=== PATIENT | male | born 1955 | race Caucasian/White ===

== ENCOUNTER 2021-04-11 00:37 | Inpatient (IN) | payer OTHER ==
[~2021-04-11] VITALS: Ht 172.7 cm; Wt 113.4 kg
[2021-04-11] MEDS ORDERED: WELLBUTRIN 100100 MG PO (03:17)
[2021-04-11] MEDS ORDERED: LIPITOR 40 MG T40 M1 PO (03:18)
[2021-04-11] MEDS ORDERED: METFORMIN HCL500 MG PO (03:19)
[2021-04-11] MEDS ORDERED: OMEPRAZOLE 20 M20 M1 PO (03:19)
[2021-04-11] MEDS ORDERED: LISINOPRIL5 MG PO (03:20)
[2021-04-11] MEDS ORDERED: IRON325 PO (03:21)
[2021-04-11] MEDS ORDERED: PAROXETINE HCL30 MG PO (03:24)
[2021-04-11 04:02] LABS: CALCIUM 8.7 mg/dL (8.5-10.1); CREATININE 1.2 mg/dL (0.7-1.3); POTASSIUM 3.9 mmol/L (3.5-5.1)
--- NOTE | 2021-04-11 04:07 | NUR ---
PT IS A DIRECT ADMIT FROM [facility]. ARRIVED AT 0200 ON AN INSULIN DRIP UPON ARRIVAL. BSG CHECKED 150. 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 INSULIN DRIP DC'D. ADDMISSION DONE AND PT ORIENTED TO THE UNIT. BSG RECHECKED IN AN HOUR 60. PO ORANGE JUICE GIVEN AND WILL RECHECK AGAIN. PT C/O CRAMPING IN HANDS AND LEFT LEG STATED STARTED THIS MORNING AND IS INTERMITENT. SR WITH BBB ON THE MONITOR. CALL LIGHT AT REACH AND WILL CONT TO MONITOR.
[2021-04-11 04:49] VITALS: BP 128/63
[2021-04-11 07:14] LABS: ALBUMIN 3.4 g/dL (3.4-5.0); CALCIUM 8.5 mg/dL (8.5-10.1); CREATININE 1.2 mg/dL (0.7-1.3); PHOSPHORUS 3.7 mg/dL (2.5-4.9)
[2021-04-11 07:23] LABS: POTASSIUM 4.1 mmol/L (3.5-5.1)
[2021-04-11 08:15] VITALS: BP 124/52
[2021-04-11 11:50] VITALS: BP 130/78
[2021-04-11 16:03] VITALS: BP 111/72
--- NOTE | 2021-04-11 18:33 | NUR ---
OVERALL PT HAD A GOOD SHIFT, BLOOD SUGARS CONTROLLED WITH INSULIN. PT UP TO VOID SEVERAL TIMES THROUGHOUT THE SHIFT. PT ALSO TOOK A SHOWER.
[2021-04-11 20:18] VITALS: BP 125/76
--- NOTE | 2021-04-12 04:12 | NUR ---
PT IS A/O X4 AND IS UP AD ELIZABETH IN ROOM. PLEASANT AND COOPERATIVE. ROOM AIR. VSS. AFEBRILE. HS BLOOD SUGAR WNL. NO INSULIN GIVEN. DENIES C/O PAIN OR DISCOMFORT. CALLS OUT APPROPRIATELY FOR ASSISTANCE. PT IS PROGRESSING TOWARDS PLAN OF CARE DC GOALS.
[2021-04-12 04:35] LABS: MCH 29.7 pg (26.0-34.0); MCHC 33.4 g/dL (28.0-37.0); RBC 4.72 mil/uL (4.50-6.00); RDW 14.9 % (10.5-14.5)
[2021-04-12 04:45] VITALS: BP 124/79
[2021-04-12 05:02] LABS: ALBUMIN 2.8 g/dL (3.4-5.0); CALCIUM 8.2 mg/dL (8.5-10.1); PHOSPHORUS 3.7 mg/dL (2.5-4.9); POTASSIUM 3.9 mmol/L (3.5-5.1)
[2021-04-12 07:08] LABS: ESTIMATED AVERAGE GLUCOSE > 398 mg/dL (()); GLYCOHEMOGLOBIN (HGB A1C) > 15.5 % (4.8-5.6)
[2021-04-12 08:10] VITALS: BP 108/90
[2021-04-12 12:05] VITALS: BP 122/72
[2021-04-12 16:15] VITALS: BP 132/68
[2021-04-12 19:55] VITALS: BP 139/81
[2021-04-13 03:13] LABS: ABSOLUTE NEUTROPHILS 3.8 thou/uL (1.4-8.2); BASOPHILS 0.7 % (0.0-2.0); EOSINOPHILS 2.1 % (0.0-3.0); HEMATOCRIT 41.9 % (42.0-52.0); HEMOGLOBIN 13.9 gm/dL (14.0-18.0); LYMPHOCYTES 36.2 % (24.0-44.0); MCHC 33.3 g/dL (28.0-37.0); MCV 90.2 fL (80.0-100.0); MONOCYTES 5.5 % (1.0-8.0); PLATELET COUNT 220 thou/uL (150-400); POLYS 55.5 % (36.0-66.0); RBC 4.64 mil/uL (4.50-6.00); WBC 6.9 thou/uL (4.0-11.0)
[2021-04-13 04:40] VITALS: BP 123/63
--- NOTE | 2021-04-13 05:38 | NUR ---
PT AMBULATING TO BATHROOM INDEPENDENTLY AND IS TOLERATING WELL. DENIES PAIN. RESTING COMFORTABLY. NO NEEDS VOICED. CALL LIGHT WITHIN REACH. FREQUENT OBSERVATION.
[2021-04-13 08:25] VITALS: BP 124/70
[2021-04-13] MEDS ORDERED: METFORMIN HCL500 MG PO (11:35)
[2021-04-13] MEDS ORDERED: LANTUS SUBQ (11:36)
[2021-04-13] MEDS ORDERED: TRADJENTA5 MG PO (11:36)
[2021-04-13 11:42] VITALS: BP 124/70
[2021-04-13 12:15] VITALS: BP 130/83
--- NOTE | 2021-04-13 15:10 | NUR ---
PT ALERT AND ORIENTED X4, DENIES ANY PAIN TODAY. BLOOD GLUCOSE BETTER CONTROLLED NOW. ORDERS FOPR DISCHARGE IN. PT EDUCATED ON HOW TO GIVE HIME SELF INSULIN SHOTS. HANDOUTS HOW HOW TO MANAGE HYPERGLYCEMIA GIVEN TO PT. EDUCATION DONE WITH PT IN THE ROOM. DENIES ANY QUESTIONS. IV AND TELE D/C. ALL BELONGING WITH. PT TAKEN DOWN VIA WHEELCHAIR.
== END 2021-04-13 15:38 | disposition home or self-care (01) | DRG 637 ==
LOC: 2N 00:37
PROVIDERS: Nurse Practitioner Family; ADMIT Hospitalist; ATTEND Hospitalist
DX: E11.00 Type 2 diabetes mellitus with hyperosmolarity without nonketotic hyperglycemic-hyperosmolar coma (NKHHC) (principal); N17.0 Acute kidney failure with tubular necrosis; N18.9 Chronic kidney disease, unspecified; K21.9 Gastro-esophageal reflux disease without esophagitis; E11.22 Type 2 diabetes mellitus with diabetic chronic kidney disease; E66.9 Obesity, unspecified; F31.9 Bipolar disorder, unspecified; I12.9 Hypertensive chronic kidney disease with stage 1 through stage 4 chronic kidney disease, or unspecified chronic kidney disease; D50.9 Iron deficiency anemia, unspecified; E78.5 Hyperlipidemia, unspecified; Z96.652 Presence of left artificial knee joint; Z98.52 Vasectomy status; Z87.891 Personal history of nicotine dependence; Z68.38 Body mass index [BMI] 38.0-38.9, adult; Z98.84 Bariatric surgery status; Z79.899 Other long term (current) drug therapy
CPT/HCPCS: 10081